=== PATIENT | female | born 1995 | race Caucasian/White ===

== ENCOUNTER 2017-06-25 12:30 | Emergency (ER) | payer SELFPAY ==
[~2017-06-25] VITALS: Ht 162.6 cm; Wt 81.1 kg
[2017-06-25 12:59] VITALS: BP 105/62
== END 2017-06-25 15:09 | disposition home or self-care (01) ==
LOC: EME 12:30
DX: S82.441A Displaced spiral fracture of shaft of right fibula, initial encounter for closed fracture (principal); W00.0XXA Fall on same level due to ice and snow, initial encounter
CPT/HCPCS: 73610; 99281; 99284